=== PATIENT | male | born 1955 | race Caucasian/White ===

== ENCOUNTER 2021-11-09 16:31 | Inpatient (IN) | payer MEDICARE ==
[2021-11-10 22:05] LABS: Basophils % (Auto) 0.4 % (0.0-1.8); Eosinophils % (Auto) 0.9 % (0.0-4.3); Hematocrit 39.6 % (35.5-45.6); Hemoglobin 13.7 gm/dl (11.8-15.2); Lymphocytes # (Auto) 0.6 K/mm3 (1.2-5.4); Lymphocytes % (Auto) 24.1 % (13.4-35.0); Mean Corpuscular HGB Conc 35 % (32-34); Mean Corpuscular Volume 92 fl (84-94); Monocytes # (Auto) 0.3 K/mm3 (0.0-0.8); Monocytes % (Auto) 12.2 % (0.0-7.3); Platelet Count 112 K/mm3 (140-440); Red Cell Distribution Width 13.2 % (13.2-15.2)
[2021-11-10 22:37] LABS: Alanine Aminotransferase 23 units/L (7-56); Albumin 3.6 g/dL (3.9-5); BUN/Creatinine Ratio 22; Blood Urea Nitrogen 20 mg/dL (9-20); Calcium 9.3 mg/dL (8.4-10.2); Chol/HDL Ratio 3.39 %; HDL Cholesterol 53 mg/dL (40-59); Hemolysis Index 30; LDL Cholesterol,Direct 106 mg/dL (50-130)
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
[2021-11-11] MEDS ORDERED: NON-FORMULARY EACH (Acetaminophen [Acetaminophen Er] 650 MG Tablet.Er) PO PRN (09:25)
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
[2021-11-11] MEDS ORDERED: ACETAMINOPHEN 325 MG TAB PO PRN (09:30)
[2021-11-11] MEDS: ASPIRIN 325 MG TAB PO SCH (09:47)
[2021-11-11] MEDS: DIVALPROEX DR 125 MG TAB PO SCH ×3 (09:54→21:48)
[2021-11-11] MEDS ORDERED: ASPIRIN 325 MG PO SCH (10:00)
[2021-11-11] MEDS ORDERED: amLODIPine 5 MG TAB PO SCH ×3 (10:30→11:00)
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
[2021-11-12 08:54] LABS: Hemoglobin 12.8 gm/dl (11.8-15.2); Mean Corpuscular HGB Conc 33 % (32-34); Mean Corpuscular Volume 92 fl (84-94); Platelet Count 110 K/mm3 (140-440); Red Blood Count 4.24 M/mm3 (3.65-5.03)
[2021-11-12] MEDS: ASPIRIN 325 MG TAB PO SCH (09:36)
[2021-11-12] MEDS: amLODIPine 10 MG TAB PO SCH (09:36)
[2021-11-12] MEDS: DIVALPROEX DR 125 MG TAB PO SCH ×2 (09:37→21:24)
--- NOTE | 2021-11-12 12:18 | Progress Note ---
Subjective Date of service: 11/12/21 Subjective Comment: 11/12: The patient was seen today. He states he is alright " my family got on my nerves." He reports mood as good, states sleep and appetite as good. The patient denies any current suicidal/homicidal ideation and denies hallucinations. Per nurse " Pt non-compliant with medications as he refused bedtime meds stating he thinks he doesn't need it." REVIEW OF SYSTEMS Constitutional: Negative for weight loss ENT: Negative for stridor Respiratory: Negative for cough or hemoptysis All other systems reviewed and are negative MENTAL STATUS General Appearance and Behavior: age appropriate, good eye contact, cooperative Cooperation: Cooperative Psychomotor Behavior: within normal limits Mood: "alright" Affect and affective range: Congruent with stated mood Thought Process: goal directed Thought Content: reality oriented Speech: Normal volume and Regular rate and rhythm Suicidal Ideation: Denies Homicidal Ideation: Denies HI Hallucinations: Denies Delusions: None elicited Impulse Control: Impaired Insight and Judgment: Limited Memory: Limited Attention: attentive Orientation: alert and oriented Assessment Unspecified Mood Disorder Treatment Plan Patient will be admitted for inpatient psychiatric evaluation, medication adjustment and close monitoring The patient's behavior, mood, sleep and appetite will be closely monitored. Patient will be enrolled in individual and group therapeutic sessions and encouraged to attend. Patient will be provided with a safe and structured environment. Patient's physical health needs will be addressed by the Hospitalist. Hospitalist Consulted Labs including CBC, CMP, Lipid profile and Hemoglobin A1C ordered Social Assessment will be completed and the Well Driller will work with patient and family to ensure a suitable and safe disposition Medication adjustment will be made as clinically indicated Continue Depakote DR 125mg po BID Usual Wellness Sabianist/Preservation: - Start Trazodone 50 mg po QHS PRN The patient agreed on the treatment plan, understood the risk, benefit, alternative treatment, potential consequence of no treatment, and gave informed consent. Case staffed with Dr. Sandoval Legal Status: Voluntary Reaction to Hospitalization: Accepting Medications and Allergies Medications and Allergies Allergies Allergy/AdvReac Type Severity Reaction Status Date / Time No Known Allergies Allergy Verified 11/09/21 23:25 Home Medications Medication Instructions Recorded Confirmed Last Taken Type Acetaminophen [Acetaminophen ER] 650 mg PO Q6HR PRN 11/09/21 11/09/21 Unknown History Amlodipine Besylate [Norvasc] 5 mg PO DAILY 11/09/21 11/09/21 Unknown History Aspirin [Vazalore] 325 mg PO DAILY 11/09/21 11/09/21 Unknown History Active Meds: Active Medications Acetaminophen (Acetaminophen 325 Mg Tab) 650 mg PO Q6HR PRN PRN Reason: Pain, Moderate (4-6) Amlodipine Besylate (Amlodipine 10 Mg Tab) 10 mg PO DAILY [facility] Last Admin: 11/12/21 09:36 Dose: Not Given Aspirin (Aspirin 325 Mg Tab) 325 mg PO QDAY [facility] Last Admin: 11/12/21 09:36 Dose: Not Given Divalproex Sodium (Divalproex Dr 125 Mg Tab) 125 mg PO BID [facility] Last Admin: 11/12/21 09:37 Dose: Not Given Results - Results Labs/Vitals: Laboratory Last Values WBC 2.4 K/mm3 (4.5-11.0) L 11/12/21 07:57 RBC 4.24 M/mm3 (3.65-5.03) 11/12/21 07:57 Hgb 12.8 gm/dl (11.8-15.2) 11/12/21 07:57 Hct 39.0 % (35.5-45.6) 11/12/21 07:57 MCV 92 fl (84-94) 11/12/21 07:57 MCH 30 pg (28-32) 11/12/21 07:57 MCHC 33 % (32-34) 11/12/21 07:57 RDW 13.0 % (13.2-15.2) L 11/12/21 07:57 Plt Count 110 K/mm3 (140-440) L 11/12/21 07:57 Lymph % (Auto) 24.1 % (13.4-35.0) 11/10/21 21:39 [place] % (Auto) 12.2 % (0.0-7.3) H 11/10/21 21:39 Eos % (Auto) 0.9 % (0.0-4.3) 11/10/21 21:39 Baso % (Auto) 0.4 % (0.0-1.8) 11/10/21 21:39 Lymph # (Auto) 0.6 K/mm3 (1.2-5.4) L 11/10/21 21:39 [place] # (Auto) 0.3 K/mm3 (0.0-0.8) 11/10/21 21:39 Eos # (Auto) 0.0 K/mm3 (0.0-0.4) 11/10/21 21:39 Baso # (Auto) 0.0 K/mm3 (0.0-0.1) 11/10/21 21:39 Seg Neutrophils % 62.4 % (40.0-70.0) 11/10/21 21:39 Seg Neutrophils # 1.5 K/mm3 (1.8-7.7) L 11/10/21 21:39 Sodium 137 mmol/L (137-145) 11/10/21 21:39 Potassium 4.1 mmol/L (3.6-5.0) 11/10/21 21:39 Chloride 99.8 mmol/L (98-107) 11/10/21 21:39 Carbon Dioxide 26 mmol/L (22-30) 11/10/21 21:39 Anion Gap 15 mmol/L 11/10/21 21:39 BUN 20 mg/dL (9-20) 11/10/21 21:39 Creatinine 0.9 mg/dL (0.8-1.3) 11/10/21 21:39 Estimated GFR > 60 ml/min 11/10/21 21:39 BUN/Creatinine Ratio 22 % 11/10/21 21:39 Glucose 133 mg/dL (75-100) H 11/10/21 21:39 Hemoglobin A1c 6.0 % (4-6) 11/10/21 21:39 Calcium 9.3 mg/dL (8.4-10.2) 11/10/21 21:39 Total Bilirubin 0.70 mg/dL (0.1-1.2) 11/10/21 21:39 AST 35 units/L (5-40) 11/10/21 21:39 ALT 23 units/L (7-56) 11/10/21 21:39 Alkaline Phosphatase 83 units/L (35-129) 11/10/21 21:39 Total Protein 7.9 g/dL (6.3-8.2) 11/10/21 21:39 Albumin 3.6 g/dL (3.9-5) L 11/10/21 21:39 Albumin/Globulin Ratio 0.8 % 11/10/21 21:39 Triglycerides 144 mg/dL (2-149) 11/10/21 21:39 Cholesterol 180 mg/dL (50-199) 11/10/21 21:39 LDL Cholesterol Direct 106 mg/dL (50-130) 11/10/21 21:39 HDL Cholesterol 53 mg/dL (40-59) 11/10/21 21:39 Cholesterol/HDL Ratio 3.39 % 11/10/21 21:39 TSH 1.640 mlU/mL (0.270-4.200) 11/10/21 21:39 Last Vital Signs Temp 98.6 F 11/12/21 09:29 Pulse 79 11/12/21 09:29 Resp 18 11/12/21 09:29 BP 114/49 11/12/21 09:29 Pulse Ox 98 11/12/21 09:29
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
[2021-11-13] MEDS: ASPIRIN 325 MG TAB PO SCH (09:45)
[2021-11-13] MEDS: DIVALPROEX DR 125 MG TAB PO SCH (09:45)
[2021-11-13] MEDS: amLODIPine 10 MG TAB PO SCH (09:45)
--- NOTE | 2021-11-13 09:45 | Progress Note ---
Subjective Date of service: 11/13/21 Subjective Comment: 11/13:The patient was seen today. The patient was seen socializing with peer. He states he is doing well "everything is good no problem." patient denies any current suicidal/homicidal ideation and denies hallucinations. 11/12: The patient was seen today. He states he is alright " my family got on my nerves." He reports mood as good, states sleep and appetite as good. The patient denies any current suicidal/homicidal ideation and denies hallucinations. Per nurse " Pt non-compliant with medications as he refused bedtime meds stating he thinks he doesn't need it." REVIEW OF SYSTEMS Constitutional: Negative for weight loss ENT: Negative for stridor Respiratory: Negative for cough or hemoptysis All other systems reviewed and are negative MENTAL STATUS General Appearance and Behavior: age appropriate, good eye contact, cooperative Cooperation: Cooperative Psychomotor Behavior: within normal limits Mood: "good" Affect and affective range: Congruent with stated mood Thought Process: goal directed Thought Content: reality oriented Speech: Normal volume and Regular rate and rhythm Suicidal Ideation: Denies Homicidal Ideation: Denies HI Hallucinations: Denies Delusions: None elicited Impulse Control: Normal Insight and Judgment: Limited Memory: Limited Attention: attentive Orientation: alert and oriented Assessment Unspecified Mood Disorder Treatment Plan Patient will be admitted for inpatient psychiatric evaluation, medication adjustment and close monitoring The patient's behavior, mood, sleep and appetite will be closely monitored. Patient will be enrolled in individual and group therapeutic sessions and encouraged to attend. Patient will be provided with a safe and structured environment. Patient's physical health needs will be addressed by the Hospitalist. Hospitalist Consulted Labs including CBC, CMP, Lipid profile and Hemoglobin A1C ordered Social Assessment will be completed and the Monotype Setter will work with patient and family to ensure a suitable and safe disposition Medication adjustment will be made as clinically indicated Continue Depakote DR 125mg po BID Usual Wellness Rastafari/Preservation: - Start Trazodone 50 mg po QHS PRN The patient agreed on the treatment plan, understood the risk, benefit, alternative treatment, potential consequence of no treatment, and gave informed consent. Case staffed with Dr. Sandoval Legal Status: Voluntary Reaction to Hospitalization: Accepting Medications and Allergies Medications and Allergies Allergies Allergy/AdvReac Type Severity Reaction Status Date / Time No Known Allergies Allergy Verified 11/09/21 23:25 Home Medications Medication Instructions Recorded Confirmed Last Taken Type Acetaminophen [Acetaminophen ER] 650 mg PO Q6HR PRN 11/09/21 11/09/21 Unknown History Amlodipine Besylate [Norvasc] 5 mg PO DAILY 11/09/21 11/09/21 Unknown History Aspirin [Vazalore] 325 mg PO DAILY 11/09/21 11/09/21 Unknown History Active Meds: Active Medications Acetaminophen (Acetaminophen 325 Mg Tab) 650 mg PO Q6HR PRN PRN Reason: Pain, Moderate (4-6) Amlodipine Besylate (Amlodipine 10 Mg Tab) 10 mg PO DAILY [facility] Last Admin: 11/12/21 09:36 Dose: Not Given Aspirin (Aspirin 325 Mg Tab) 325 mg PO QDAY [facility] Last Admin: 11/12/21 09:36 Dose: Not Given Divalproex Sodium (Divalproex Dr 125 Mg Tab) 125 mg PO BID [facility] Last Admin: 11/12/21 21:24 Dose: Not Given Results - Results Labs/Vitals: Laboratory Last Values WBC 2.4 K/mm3 (4.5-11.0) L 11/12/21 07:57 RBC 4.24 M/mm3 (3.65-5.03) 11/12/21 07:57 Hgb 12.8 gm/dl (11.8-15.2) 11/12/21 07:57 Hct 39.0 % (35.5-45.6) 11/12/21 07:57 MCV 92 fl (84-94) 11/12/21 07:57 MCH 30 pg (28-32) 11/12/21 07:57 MCHC 33 % (32-34) 11/12/21 07:57 RDW 13.0 % (13.2-15.2) L 11/12/21 07:57 Plt Count 110 K/mm3 (140-440) L 11/12/21 07:57 Lymph % (Auto) 24.1 % (13.4-35.0) 11/10/21 21:39 [place] % (Auto) 12.2 % (0.0-7.3) H 11/10/21 21:39 Eos % (Auto) 0.9 % (0.0-4.3) 11/10/21 21:39 Baso % (Auto) 0.4 % (0.0-1.8) 11/10/21 21:39 Lymph # (Auto) 0.6 K/mm3 (1.2-5.4) L 11/10/21 21:39 [place] # (Auto) 0.3 K/mm3 (0.0-0.8) 11/10/21 21:39 Eos # (Auto) 0.0 K/mm3 (0.0-0.4) 11/10/21 21:39 Baso # (Auto) 0.0 K/mm3 (0.0-0.1) 11/10/21 21:39 Seg Neutrophils % 62.4 % (40.0-70.0) 11/10/21 21:39 Seg Neutrophils # 1.5 K/mm3 (1.8-7.7) L 11/10/21 21:39 Sodium 137 mmol/L (137-145) 11/10/21 21:39 Potassium 4.1 mmol/L (3.6-5.0) 11/10/21 21:39 Chloride 99.8 mmol/L (98-107) 11/10/21 21:39 Carbon Dioxide 26 mmol/L (22-30) 11/10/21 21:39 Anion Gap 15 mmol/L 11/10/21 21:39 BUN 20 mg/dL (9-20) 11/10/21 21:39 Creatinine 0.9 mg/dL (0.8-1.3) 11/10/21 21:39 Estimated GFR > 60 ml/min 11/10/21 21:39 BUN/Creatinine Ratio 22 % 11/10/21 21:39 Glucose 133 mg/dL (75-100) H 11/10/21 21:39 Hemoglobin A1c 6.0 % (4-6) 11/10/21 21:39 Calcium 9.3 mg/dL (8.4-10.2) 11/10/21 21:39 Total Bilirubin 0.70 mg/dL (0.1-1.2) 11/10/21 21:39 AST 35 units/L (5-40) 11/10/21 21:39 ALT 23 units/L (7-56) 11/10/21 21:39 Alkaline Phosphatase 83 units/L (35-129) 11/10/21 21:39 Total Protein 7.9 g/dL (6.3-8.2) 11/10/21 21:39 Albumin 3.6 g/dL (3.9-5) L 11/10/21 21:39 Albumin/Globulin Ratio 0.8 % 11/10/21 21:39 Triglycerides 144 mg/dL (2-149) 11/10/21 21:39 Cholesterol 180 mg/dL (50-199) 11/10/21 21:39 LDL Cholesterol Direct 106 mg/dL (50-130) 11/10/21 21:39 HDL Cholesterol 53 mg/dL (40-59) 11/10/21 21:39 Cholesterol/HDL Ratio 3.39 % 11/10/21 21:39 TSH 1.640 mlU/mL (0.270-4.200) 11/10/21 21:39 Last Vital Signs Temp 97.4 F L 11/13/21 08:04 Pulse 61 11/13/21 08:04 Resp 16 11/13/21 08:04 BP 161/77 11/13/21 08:04 Pulse Ox 97 11/13/21 08:04
[2021-11-13] MEDS: DIVALPROEX SPRINKLE 125 MG CAP PO SCH (23:02)
[2021-11-14] MEDS ORDERED: amLODIPine 10 MG TAB PO SCH (08:25)
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
--- NOTE | 2021-11-14 09:13 | Progress Note ---
Subjective Date of service: 11/14/21 Subjective Comment: 11/14: The patient was seen today. The patient reports doing alright, he was seen socializing with peer. He states sleep as " so so," and reports having poor appetite. Patient denies any current suicidal/homicidal ideation and denies hallucinations. Ensure supplement with every meal. 11/13:The patient was seen today. The patient was seen socializing with peer. He states he is doing well "everything is good no problem." patient denies any current suicidal/homicidal ideation and denies hallucinations. 11/12: The patient was seen today. He states he is alright " my family got on my nerves." He reports mood as good, states sleep and appetite as good. The patient denies any current suicidal/homicidal ideation and denies hallucinations. Per nurse " Pt non-compliant with medications as he refused bedtime meds stating he thinks he doesn't need it." REVIEW OF SYSTEMS Constitutional: Negative for weight loss ENT: Negative for stridor Respiratory: Negative for cough or hemoptysis All other systems reviewed and are negative MENTAL STATUS General Appearance and Behavior: age appropriate, good eye contact, cooperative Cooperation: Cooperative Psychomotor Behavior: within normal limits Mood: "alright" Affect and affective range: Congruent with stated mood Thought Process: goal directed Thought Content: reality oriented Speech: Normal volume and Regular rate and rhythm Suicidal Ideation: Denies Homicidal Ideation: Denies HI Hallucinations: Denies Delusions: None elicited Impulse Control: Normal Insight and Judgment: Limited Memory: Limited Attention: attentive Orientation: alert and oriented Assessment Unspecified Mood Disorder Treatment Plan Patient will be admitted for inpatient psychiatric evaluation, medication adjustment and close monitoring The patient's behavior, mood, sleep and appetite will be closely monitored. Patient will be enrolled in individual and group therapeutic sessions and encouraged to attend. Patient will be provided with a safe and structured environment. Patient's physical health needs will be addressed by the Hospitalist. Hospitalist Consulted Labs including CBC, CMP, Lipid profile and Hemoglobin A1C ordered Social Assessment will be completed and the Senior Linux Administrator will work with patient and family to ensure a suitable and safe disposition Medication adjustment will be made as clinically indicated Continue Depakote DR 125mg po BID No changes made today Usual Wellness Caodaism/Preservation: - Start Trazodone 50 mg po QHS PRN The patient agreed on the treatment plan, understood the risk, benefit, alternative treatment, potential consequence of no treatment, and gave informed consent. Case staffed with Dr. Sandoval Legal Status: Voluntary Reaction to Hospitalization: Accepting Medications and Allergies Medications and Allergies Allergies Allergy/AdvReac Type Severity Reaction Status Date / Time No Known Allergies Allergy Verified 11/09/21 23:25 Home Medications Medication Instructions Recorded Confirmed Last Taken Type Acetaminophen [Acetaminophen ER] 650 mg PO Q6HR PRN 11/09/21 11/09/21 Unknown History Amlodipine Besylate [Norvasc] 5 mg PO DAILY 11/09/21 11/09/21 Unknown History Aspirin [Vazalore] 325 mg PO DAILY 11/09/21 11/09/21 Unknown History Active Meds: Active Medications Acetaminophen (Acetaminophen 325 Mg Tab) 650 mg PO Q6HR PRN PRN Reason: Pain, Moderate (4-6) Amlodipine Besylate (Amlodipine 10 Mg Tab) 5 mg PO DAILY [facility] Aspirin (Aspirin 325 Mg Tab) 325 mg PO QDAY [facility] Last Admin: 11/13/21 09:45 Dose: Not Given Divalproex Sodium (Divalproex Sprinkle 125 Mg Cap) 125 mg PO BID [facility] Last Admin: 11/13/21 23:02 Dose: Not Given Results - Results Labs/Vitals: Laboratory Last Values WBC 2.4 K/mm3 (4.5-11.0) L 11/12/21 07:57 RBC 4.24 M/mm3 (3.65-5.03) 11/12/21 07:57 Hgb 12.8 gm/dl (11.8-15.2) 11/12/21 07:57 Hct 39.0 % (35.5-45.6) 11/12/21 07:57 MCV 92 fl (84-94) 11/12/21 07:57 MCH 30 pg (28-32) 11/12/21 07:57 MCHC 33 % (32-34) 11/12/21 07:57 RDW 13.0 % (13.2-15.2) L 11/12/21 07:57 Plt Count 110 K/mm3 (140-440) L 11/12/21 07:57 Lymph % (Auto) 24.1 % (13.4-35.0) 11/10/21 21:39 [place] % (Auto) 12.2 % (0.0-7.3) H 11/10/21 21:39 Eos % (Auto) 0.9 % (0.0-4.3) 11/10/21 21:39 Baso % (Auto) 0.4 % (0.0-1.8) 11/10/21 21:39 Lymph # (Auto) 0.6 K/mm3 (1.2-5.4) L 11/10/21 21:39 [place] # (Auto) 0.3 K/mm3 (0.0-0.8) 11/10/21 21:39 Eos # (Auto) 0.0 K/mm3 (0.0-0.4) 11/10/21 21:39 Baso # (Auto) 0.0 K/mm3 (0.0-0.1) 11/10/21 21:39 Seg Neutrophils % 62.4 % (40.0-70.0) 11/10/21 21:39 Seg Neutrophils # 1.5 K/mm3 (1.8-7.7) L 11/10/21 21:39 Sodium 137 mmol/L (137-145) 11/10/21 21:39 Potassium 4.1 mmol/L (3.6-5.0) 11/10/21 21:39 Chloride 99.8 mmol/L (98-107) 11/10/21 21:39 Carbon Dioxide 26 mmol/L (22-30) 11/10/21 21:39 Anion Gap 15 mmol/L 11/10/21 21:39 BUN 20 mg/dL (9-20) 11/10/21 21:39 Creatinine 0.9 mg/dL (0.8-1.3) 11/10/21 21:39 Estimated GFR > 60 ml/min 11/10/21 21:39 BUN/Creatinine Ratio 22 % 11/10/21 21:39 Glucose 133 mg/dL (75-100) H 11/10/21 21:39 Hemoglobin A1c 6.0 % (4-6) 11/10/21 21:39 Calcium 9.3 mg/dL (8.4-10.2) 11/10/21 21:39 Total Bilirubin 0.70 mg/dL (0.1-1.2) 11/10/21 21:39 AST 35 units/L (5-40) 11/10/21 21:39 ALT 23 units/L (7-56) 11/10/21 21:39 Alkaline Phosphatase 83 units/L (35-129) 11/10/21 21:39 Total Protein 7.9 g/dL (6.3-8.2) 11/10/21 21:39 Albumin 3.6 g/dL (3.9-5) L 11/10/21 21:39 Albumin/Globulin Ratio 0.8 % 11/10/21 21:39 Triglycerides 144 mg/dL (2-149) 11/10/21 21:39 Cholesterol 180 mg/dL (50-199) 11/10/21 21:39 LDL Cholesterol Direct 106 mg/dL (50-130) 11/10/21 21:39 HDL Cholesterol 53 mg/dL (40-59) 11/10/21 21:39 Cholesterol/HDL Ratio 3.39 % 11/10/21 21:39 TSH 1.640 mlU/mL (0.270-4.200) 11/10/21 21:39 Last Vital Signs Temp 97.9 F 11/13/21 20:31 Pulse 89 11/14/21 08:55 Resp 18 11/14/21 08:55 BP 98/70 11/14/21 08:55 Pulse Ox 98 11/14/21 08:55
[2021-11-14] MEDS: ASPIRIN 325 MG TAB PO SCH (09:23)
[2021-11-14] MEDS: DIVALPROEX SPRINKLE 125 MG CAP PO SCH ×2 (09:23→21:21)
[2021-11-14] MEDS: amLODIPine 5 MG TAB PO SCH (10:02)
--- NOTE | 2021-11-15 09:50 | Progress Note ---
Subjective Date of service: 11/15/21 Subjective Comment: 11/15: The patient was seen today. He is calm and cooperative. He reports doing well. Patient denies any current suicidal/homicidal ideation and denies hallucinations. 11/14: The patient was seen today. The patient reports doing alright, he was seen socializing with peer. He states sleep as " so so," and reports having poor appetite. Patient denies any current suicidal/homicidal ideation and denies hallucinations. Ensure supplement with every meal. 11/13:The patient was seen today. The patient was seen socializing with peer. He states he is doing well "everything is good no problem." patient denies any cu rrent suicidal/homicidal ideation and denies hallucinations. 11/12: The patient was seen today. He states he is alright " my family got on my nerves." He reports mood as good, states sleep and appetite as good. The patient denies any current suicidal/homicidal ideation and denies hallucinations. Per nurse " Pt non-compliant with medications as he refused bedtime meds stating he thinks he doesn't need it." REVIEW OF SYSTEMS Constitutional: Negative for weight loss ENT: Negative for stridor Respiratory: Negative for cough or hemoptysis All other systems reviewed and are negative MENTAL STATUS General Appearance and Behavior: age appropriate, good eye contact, cooperative Cooperation: Cooperative Psychomotor Behavior: within normal limits Mood: "ok" Affect and affective range: Congruent with stated mood Thought Process: goal directed Thought Content: reality oriented Speech: Normal volume and Regular rate and rhythm Suicidal Ideation: Denies Homicidal Ideation: Denies HI Hallucinations: Denies Delusions: None elicited Impulse Control: Normal Insight and Judgment: Limited Memory: Limited Attention: attentive Orientation: alert and oriented Assessment Unspecified Mood Disorder Treatment Plan Patient will be admitted for inpatient psychiatric evaluation, medication adjustment and close monitoring The patient's behavior, mood, sleep and appetite will be closely monitored. Patient will be enrolled in individual and group therapeutic sessions and encouraged to attend. Patient will be provided with a safe and structured environment. Patient's physical health needs will be addressed by the Hospitalist. Hosp italist Consulted Labs including CBC, CMP, Lipid profile and Hemoglobin A1C ordered Social Assessment will be completed and the [employer] Spool Straightener will work with patient and family to ensure a suitable and safe disposition Medication adjustment will be made as clinically indicated Continue Depakote DR 125mg po BID No changes made today Usual Wellness Judaism/Preservation: - Start Trazodone 50 mg po QHS PRN The patient agreed on the treatment plan, understood the risk, benefit, alternative treatment, potential consequence of no treatment, and gave informed consent. Case staffed with Dr. Sandoval Legal Status: Voluntary Reaction to Hospitalization: Accepting Medications and Allergies Medications and Allergies Allergies Allergy/AdvReac Type Severity Reaction Status Date / Time No Known Allergies Allergy Verified 11/09/21 23:25 Home Medications Medication Instructions Recorded Confirmed Last Taken Type Acetaminophen [Acetaminophen ER] 650 mg PO Q6HR PRN 11/09/21 11/09/21 Unknown History Amlodipine Besylate [Norvasc] 5 mg PO DAILY 11/09/21 11/09/21 Unknown History Aspirin [[place]] 325 mg PO DAILY 11/09/21 11/09/21 Unknown History Active Meds: Active Medications Acetaminophen (Acetaminophen 325 Mg Tab) 650 mg PO Q6HR PRN PRN Reason: Pain, Moderate (4-6) Amlodipine Besylate (Amlodipine 5 Mg Tab) 5 mg PO QDAY [facility] Last Admin: 11/14/21 10:02 Dose: Not Given Aspirin (Aspirin 325 Mg Tab) 325 mg PO QDAY [facility] Last Admin: 11/14/21 09:23 Dose: Not Given Divalproex Sodium (Divalproex Sprinkle 125 Mg Cap) 125 mg PO BID [facility] Last Admin: 11/14/21 21:21 Dose: Not Given Results - Results Labs/Vitals: Laboratory Last Values WBC 2.4 K/mm3 (4.5-11.0) L 11/12/21 07:57 RBC 4.24 M/mm3 (3.65-5.03) 11/12/21 07:57 Hgb 12.8 gm/dl (11.8-15.2) 11/12/21 07:57 Hct 39.0 % (35.5-45.6) 11/12/21 07:57 MCV 92 fl (84-94) 11/12/21 07:57 MCH 30 pg (28-32) 11/12/21 07:57 MCHC 33 % (32-34) 11/12/21 07:57 RDW 13.0 % (13.2-15.2) L 11/12/21 07:57 Plt Count 110 K/mm3 (140-440) L 11/12/21 07:57 Lymph % (Auto) 24.1 % (13.4-35.0) 11/10/21 21:39 [place] % (Auto) 12.2 % (0.0-7.3) H 11/10/21 21:39 Eos % (Auto) 0.9 % (0.0-4.3) 11/10/21 21:39 Baso % (Auto) 0.4 % (0.0-1.8) 11/10/21 21:39 Lymph # (Auto) 0.6 K/mm3 (1.2-5.4) L 11/10/21 21:39 [place] # (Auto) 0.3 K/mm3 (0.0-0.8) 11/10/21 21:39 Eos # (Auto) 0.0 K/mm3 (0.0-0.4) 11/10/21 21:39 Baso # (Auto) 0.0 K/mm3 (0.0-0.1) 11/10/21 21:39 Seg Neutrophils % 62.4 % (40.0-70.0) 11/10/21 21:39 Seg Neutrophils # 1.5 K/mm3 (1.8-7.7) L 11/10/21 21:39 Sodium 137 mmol/L (137-145) 11/10/21 21:39 Potassium 4.1 mmol/L (3.6-5.0) 11/10/21 21:39 Chloride 99.8 mmol/L (98-107) 11/10/21 21:39 Carbon Dioxide 26 mmol/L (22-30) 11/10/21 21:39 Anion Gap 15 mmol/L 11/10/21 21:39 BUN 20 mg/dL (9-20) 11/10/21 21:39 Creatinine 0.9 mg/dL (0.8-1.3) 11/10/21 21:39 Estimated GFR > 60 ml/min 11/10/21 21:39 BUN/Creatinine Ratio 22 % 11/10/21 21:39 Glucose 133 mg/dL (75-100) H 11/10/21 21:39 Hemoglobin A1c 6.0 % (4-6) 11/10/21 21:39 Calcium 9.3 mg/dL (8.4-10.2) 11/10/21 21:39 Total Bilirubin 0.70 mg/dL (0.1-1.2) 11/10/21 21:39 AST 35 units/L (5-40) 11/10/21 21:39 ALT 23 units/L (7-56) 11/10/21 21:39 Alkaline Phosphatase 83 units/L (35-129) 11/10/21 21:39 Total Protein 7.9 g/dL (6.3-8.2) 11/10/21 21:39 Albumin 3.6 g/dL (3.9-5) L 11/10/21 21:39 Albumin/Globulin Ratio 0.8 % 11/10/21 21:39 Triglycerides 144 mg/dL (2-149) 11/10/21 21:39 Cholesterol 180 mg/dL (50-199) 11/10/21 21:39 LDL Cholesterol Direct 106 mg/dL (50-130) 11/10/21 21:39 HDL Cholesterol 53 mg/dL (40-59) 11/10/21 21:39 Cholesterol/HDL Ratio 3.39 % 11/10/21 21:39 TSH 1.640 mlU/mL (0.270-4.200) 11/10/21 21:39 Last Vital Signs Temp 97.9 F 11/13/21 20:31 Pulse 89 11/14/21 10:02 Resp 18 11/14/21 08:55 BP 98/70 11/14/21 10:02 Pulse Ox 98 11/14/21 08:55
[2021-11-15] MEDS: amLODIPine 5 MG TAB PO SCH (10:11)
[2021-11-15] MEDS: DIVALPROEX SPRINKLE 125 MG CAP PO SCH ×2 (10:12→21:27)
[2021-11-15] MEDS: ASPIRIN 325 MG TAB PO SCH (10:12)
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
--- NOTE | 2021-11-16 09:01 | Discharge Summary ---
Providers - Providers Date of Admission: 11/10/21 15:11 Date of discharge: 11/16/21 Attending physician: JIAN YU MD 11/10/21 13:48 Consult to Physician [CONS] Routine Comment: Consulting Provider: ROCIO DIALLO Physician Instructions: Reason For Exam: manage medical conditions 11/11/21 12:30 Physical Therapy Evaluation and Treat [CONS] Stat Comment: hx of falls Reason For Exam: weakness, unsteady gait 11/14/21 09:14 Consult to Dietitian/Nutrition [CONS] Routine Physician Instructions: ensure with every meal Reason For Exam: Poor intake Reason for Consult: Poor oral intake Primary care physician: BILLING MACHINE OPERATOR Hospitalization Admitting Diagnosis: F06.30 - MOOD DISORDER DUE TO KNOWN PHYSIOLOGICAL CONDITION, UNSP Condition: Stable Hospital course: The patient was provided inpatient psychiatric treatment with safe and supportive environment, group/individual therapy, psychiatric medication, medication adjustment, adverse effect monitor, medical evaluation, medical treatment, social service assessment, social support meeting, placement assessment and psycho-education. The patients mood, cognition, behavior, motivation, compliance to treatment and appreciation on family/social support are improved and stabilized. At the time of discharge, the patient had no suicidal ideas, no homicidal ideas, no aggressive thoughts, no endangering behavior and no debilitating adverse effects. The patient agreed on the treatment plan, understood the risk, benefit, alternative treatment, potential consequence of no treatment, and gave informed consent. Progress Note: 11/15: The patient was seen today. He is calm and cooperative. He reports doing well. Patient denies any current suicidal/homicidal ideation and denies hallucinations. 11/14: The patient was seen today. The patient reports doing alright, he was seen socializing with peer. He states sleep as " so so," and reports having poor appetite. Patient denies any current suicidal/homicidal ideation and denies hallucinations. Ensure supplement with every meal. 11/13:The patient was seen today. The patient was seen socializing with peer. He states he is doing well "everything is good no problem." patient denies any current suicidal/homicidal ideation and denies hallucinations. 11/12: The patient was seen today. He states he is alright " my family got on my nerves." He reports mood as good, states sleep and appetite as good. The patient denies any current suicidal/homicidal ideation and denies hallucinations. Per nurse " Pt non-compliant with medications as he refused bedtime meds stating he thinks he doesn't need it." Disposition: 30 STILL A PATIENT Allergies/Adverse Reactions: Allergies No Known Allergies Allergy (Verified 11/09/21 23:25) Vital Signs: Last Vital Signs Temp 99.0 F 11/15/21 20:48 Pulse 71 11/15/21 20:48 Resp 16 11/15/21 20:48 BP 134/85 11/15/21 20:48 Pulse Ox 97 11/15/21 20:48 Last Lab: Laboratory Last Values WBC 2.4 K/mm3 (4.5-11.0) L 11/12/21 07:57 RBC 4.24 M/mm3 (3.65-5.03) 11/12/21 07:57 Hgb 12.8 gm/dl (11.8-15.2) 11/12/21 07:57 Hct 39.0 % (35.5-45.6) 11/12/21 07:57 MCV 92 fl (84-94) 11/12/21 07:57 MCH 30 pg (28-32) 11/12/21 07:57 MCHC 33 % (32-34) 11/12/21 07:57 RDW 13.0 % (13.2-15.2) L 11/12/21 07:57 Plt Count 110 K/mm3 (140-440) L 11/12/21 07:57 Lymph % (Auto) 24.1 % (13.4-35.0) 11/10/21 21:39 [place] % (Auto) 12.2 % (0.0-7.3) H 11/10/21 21:39 Eos % (Auto) 0.9 % (0.0-4.3) 11/10/21 21:39 Baso % (Auto) 0.4 % (0.0-1.8) 11/10/21 21:39 Lymph # (Auto) 0.6 K/mm3 (1.2-5.4) L 11/10/21 21:39 [place] # (Auto) 0.3 K/mm3 (0.0-0.8) 11/10/21 21:39 Eos # (Auto) 0.0 K/mm3 (0.0-0.4) 11/10/21 21:39 Baso # (Auto) 0.0 K/mm3 (0.0-0.1) 11/10/21 21:39 Seg Neutrophils % 62.4 % (40.0-70.0) 11/10/21 21:39 Seg Neutrophils # 1.5 K/mm3 (1.8-7.7) L 11/10/21 21:39 Sodium 137 mmol/L (137-145) 11/10/21 21:39 Potassium 4.1 mmol/L (3.6-5.0) 11/10/21 21:39 Chloride 99.8 mmol/L (98-107) 11/10/21 21:39 Carbon Dioxide 26 mmol/L (22-30) 11/10/21 21:39 Anion Gap 15 mmol/L 11/10/21 21:39 BUN 20 mg/dL (9-20) 11/10/21 21:39 Creatinine 0.9 mg/dL (0.8-1.3) 11/10/21 21:39 Estimated GFR > 60 ml/min 11/10/21 21:39 BUN/Creatinine Ratio 22 % 11/10/21 21:39 Glucose 133 mg/dL (75-100) H 11/10/21 21:39 Hemoglobin A1c 6.0 % (4-6) 11/10/21 21:39 Calcium 9.3 mg/dL (8.4-10.2) 11/10/21 21:39 Total Bilirubin 0.70 mg/dL (0.1-1.2) 11/10/21 21:39 AST 35 units/L (5-40) 11/10/21 21:39 ALT 23 units/L (7-56) 11/10/21 21:39 Alkaline Phosphatase 83 units/L (35-129) 11/10/21 21:39 Total Protein 7.9 g/dL (6.3-8.2) 11/10/21 21:39 Albumin 3.6 g/dL (3.9-5) L 11/10/21 21:39 Albumin/Globulin Ratio 0.8 % 11/10/21 21:39 Triglycerides 144 mg/dL (2-149) 11/10/21 21:39 Cholesterol 180 mg/dL (50-199) 11/10/21 21:39 LDL Cholesterol Direct 106 mg/dL (50-130) 11/10/21 21:39 HDL Cholesterol 53 mg/dL (40-59) 11/10/21 21:39 Cholesterol/HDL Ratio 3.39 % 11/10/21 21:39 TSH 1.640 mlU/mL (0.270-4.200) 11/10/21 21:39 Core Measure Documentation - Palliative Care Palliative Care/ Comfort Measures: Not Applicable - Core Measures Any of the following diagnoses?: none - VTE Discharge Requirements Deep Vein Thrombosis/Pulmonary Embolism Present on Admission: No Exam - Constitutional Vitals: Temp Pulse Resp BP Pulse Ox 99.0 F 71 16 134/85 97 11/15/21 20:48 11/15/21 20:48 11/15/21 20:48 11/15/21 20:48 11/15/21 20:48 Plan Activity: advance as tolerated Weight Bearing Status: Weight Bear as Tolerated Diet: regular Durable Medical Equipment Needed Upon Discharge: Wheelchair Care Plan Goals: Maintain good and stable mental health. Plan of Treatment: The patient should be compliant with medications, not to use drugs and not to drink alcohol.The patient understands that if suicidal ideas, homicidal ideas, or any endangering thoughts/behavior arise, they should immediately seek for emergent assistance including but not limited to crisis hot line and emergency room. Follow up with outpatient Psychiatrist and PCP within 7 - 14 days of discharge. Follow up with: PRIMARY CARE, [Primary Care Provider] - 7 Days Prescriptions: Divalproex Sprinkle [Depakote Sprinkle] 125 mg PO BID 30 Days #60 capsule
[2021-11-16 10:44] VITALS: BP 126/81
[2021-11-16] MEDS: amLODIPine 5 MG TAB PO SCH (10:45)
[2021-11-16] MEDS: ASPIRIN 325 MG TAB PO SCH (10:46)
[2021-11-16] MEDS: DIVALPROEX SPRINKLE 125 MG CAP PO SCH (10:46)
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
== END 2021-11-16 19:20 | disposition home or self-care (01) | DRG 884 ==
LOC: UNDOADMIN 16:31 → 3A 16:31 → 5A 11-10 15:11
PROVIDERS: ADMIT Psychiatry & Neurology Psychiatry; ATTEND Psychiatry & Neurology Psychiatry
DX: F06.30 Mood disorder due to known physiological condition, unspecified (principal); R45.851 Suicidal ideations; I10 Essential (primary) hypertension; Z99.3 Dependence on wheelchair; D72.819 Decreased white blood cell count, unspecified; D69.6 Thrombocytopenia, unspecified; I16.0 Hypertensive urgency; G89.29 Other chronic pain; M54.50 Low back pain, unspecified; Z79.82 Long term (current) use of aspirin
CPT/HCPCS: 36415; 80053; 80061; 83036; 84443; 85025; 85027; G0378